=== PATIENT | male | born 1985 | race African-American/Black ===

== ENCOUNTER 2022-01-09 09:24 | Observation (INO) | payer BC ==
[2022-01-09] MEDS ORDERED: Acetaminophen 325 MG TAB PO PRN (10:27)
[2022-01-09] MEDS ORDERED: Ondansetron ODT 4 MG TAB PO PRN (10:27)
[2022-01-09] MEDS ORDERED: Ondansetron PF 4 MG/2 ML Vial IVP PRN (10:27)
[2022-01-09 11:29] LABS: #Monocytes 0.5 10x3/uL (0.0-1.1); %Basophils 0.3 % (0.0-2.0); %Eosinophils 0.3 % (0.0-6.0); %Monocytes 6.9 % (0.0-10.0); %Neutrophils 54.2 % (40.0-75.0); Mean Corpuscular HGB CONC 32.8 g/dL (32.0-36.0); Mean Corpuscular Hemoglobin 32.5 pg (27.0-33.0); Mean Corpuscular Volume 99.2 fl (81.2-95.1); Mean Platelet Volume 12.4 fl (7.4-10.4); Platelet Count 160 10x3/uL (150-450); RBC Distribution Width 14.5 % (11.5-14.5); Red Blood Cell (RBC) Count 3.69 10x6/uL (4.32-5.72); White Blood Cell (WBC) Count 7.4 10x3/uL (3.5-10.5)
[2022-01-09 11:38] VITALS: BMI 41.5
[2022-01-09 11:43] LABS: ALT (SGPT) 11 U/L (8-55); AST (SGOT) 15 U/L (5-34); Albumin 3.7 g/dL (3.5-5.0); Alkaline Phosphatase 67 U/L (40-110); Anion Gap 11 mmol/L (10-20); BUN (Urea Nitrogen) 27 mg/dL (8.9-20.6); Bilirubin, Total 0.6 mg/dL (0.2-1.2); Calc. Creatinine Clearance 280 mL/min (70-130); Calcium 8.6 mg/dL (7.8-10.44); Carbon Dioxide 25 mmol/L (22-29); Chloride 108 mmol/L (98-107); Globulin 2.8 g/dL (2.4-3.5); Glucose 95 mg/dL (70-105); Protein, Total 6.5 g/dL (6.0-8.3); Sodium 140 mmol/L (136-145)
[2022-01-09] MEDS ORDERED: FLU VACC QS2021-22(6MOS UP)/PF 60 MCG/0.5 ML SYRINGE IM ONE (15:15)
[2022-01-09 16:36] LABS: Hemoglobin 11.3 g/dL (13.5-17.5)
[2022-01-09] MEDS: Dextrose 5 %-0.45 % NaCl 1,000 ML IV SCH ×3 (19:50→20:55)
[2022-01-09] MEDS: Pantoprazole 40 MG VIAL IVP SCH (20:49)
[2022-01-10 04:34] LABS: #Eosinphils 0.1 10x3/uL (0.0-0.5); #Monocytes 0.5 10x3/uL (0.0-1.1); #Neutrophils 3.1 10x3/uL (1.5-8.4); %Basophils 0.3 % (0.0-2.0); %Eosinophils 1.5 % (0.0-6.0); %Lymphocytes 46.8 % (18.0-47.0); %Monocytes 7.6 % (0.0-10.0); %Neutrophils 43.7 % (40.0-75.0); Hemoglobin 10.8 g/dL (13.5-17.5); Mean Corpuscular HGB CONC 32.9 g/dL (32.0-36.0); Mean Corpuscular Hemoglobin 32.7 pg (27.0-33.0); Mean Corpuscular Volume 99.4 fl (81.2-95.1); Mean Platelet Volume 12.5 fl (7.4-10.4); Platelet Count 149 10x3/uL (150-450); RBC Distribution Width 14.4 % (11.5-14.5); White Blood Cell (WBC) Count 7.1 10x3/uL (3.5-10.5)
[2022-01-10 04:38] LABS: Hemoglobin 11.2 g/dL (13.5-17.5)
[2022-01-10 04:50] LABS: Anion Gap 11 mmol/L (10-20); BUN (Urea Nitrogen) 18 mg/dL (8.9-20.6); Calc. Creatinine Clearance 265 mL/min (70-130); Calcium 8.4 mg/dL (7.8-10.44); Carbon Dioxide 25 mmol/L (22-29); Chloride 108 mmol/L (98-107); Glucose 98 mg/dL (70-105); Potassium 3.3 mmol/L (3.5-5.1); Sodium 141 mmol/L (136-145)
[2022-01-10] MEDS ORDERED: PROPOFOL 20 ML ONE ×3 (08:12→08:43)
[2022-01-10] MEDS ORDERED: EPINEPHrine 1 MG/10 ML Abboject SYRINGE ONE (09:08)
[2022-01-10] MEDS: Pantoprazole 40 MG VIAL IVP SCH (10:00)
[2022-01-10] MEDS ORDERED: Sucralfate 1 GM/10 ML UDCUP PO SCH ×2 (10:00→15:00)
[2022-01-10 12:03] VITALS: TEMP 98
[2022-01-10 12:32] VITALS: BP 170/82
[2022-01-10] MEDS ORDERED: Potassium Chloride 20 MEQ TAB PO SCH (16:00)
== END 2022-01-10 15:32 | disposition home or self-care (01) ==
LOC: CSHTELE 09:24
PROVIDERS: ADMIT Internal Medicine; ATTEND Internal Medicine
PROC: 0W3P8ZZ Control Bleeding in Gastrointestinal Tract, Via Natural or Artificial Opening Endoscopic (ICD-10-PCS; principal; 2022-01-09)
DX: K25.4 Chronic or unspecified gastric ulcer with hemorrhage (principal); Z98.84 Bariatric surgery status; I10 Essential (primary) hypertension
CPT/HCPCS: 36415; 80048; 82607; 82746; 85025; 86850; 86900; 86901; 96374; C9113; G0378; J0171; J2704; J7042